=== PATIENT | male | born 1995 | race Caucasian/White ===

== ENCOUNTER 2017-09-07 19:09 | Emergency (ER) | payer MEDICAID ==
[2017-09-07 19:19] VITALS: BP 140/78
--- NOTE | 2017-09-07 19:30 | EDPHY ---
HPI/HX/ROS/PE/MDM Narrative: CHIEF COMPLAINT: Drainage from right toe wound HISTORY OF PRESENT ILLNESS: The patient is a 22 y/o male complaining of drainage from his right great toe paronychia site. On Sunday, 2 days ago, he had the sides of an ingrown toenail removed at [facility]. Today he noticed drainage and erythema of the resection site and was advised to present to the emergency department. The redness around the wound has not increased, but he has had more throbbing pain. Denies fever or red streaking. Was not started on antibiotics post nail removal. No chills, chest pain, shortness of breath, palpitations, vomiting, diarrhea, urinary complaints, headache, lightheadedness. REVIEW OF SYSTEMS: Aside from elements discussed in the HPI, a comprehensive 10-point review of systems was reviewed and is negative. PAST MEDICAL HISTORY: Migraines SOCIAL HISTORY: Student at , lives in [place], [facility] VITAL SIGNS: Reviewed by me GENERAL: Well-developed, well-nourished, resting comfortably in no respiratory distress. HEENT: Benign. RIGHT GREAT TOE: Erythema at tip of toe, erythema over proximal phalanx extending to MTP, medial side of nail is macerated with small amount of drainage. Range of motion is normal throughout. SKIN: Warm and dry, no rash. PSYCHIATRIC: Normal mentation, no agitation. Portions of this note were transcribed by a veterinary medical officer. I personally performed a history, physical exam, medical decision making, and confirmed accuracy of information the transcribed note. ED Course: The patient is a 22 y/o male complaining of drainage from his right great toe wound s/p toe nail removal. On exam there is erythema over proximal phalanx radiating to the MTP and erythema at the tip of the toe. The medial side is macerated with drainage. Reassessed patient, I have prescribed him Keflex for paronychia with infection. His first dose of Keflex will be given in the emergency department. I have also advised him to soak and re-bandage the wound 2-3 times a day. Return precautions provided; patient is comfortable with this plan. MDM: Differential diagnosis considered included but not limited to abscess, cellulitis, local infection, local irritation, lymphangitic spread. - Data Points Medications Given: Discontinued Medications Cephalexin (Keflex 500 Mg Prepack#4) 1 btl TAKEHOME EDNOW ONE PRN Reason: Protocol Stop: 09/07/17 19:44 Last Admin: 09/07/17 19:57 Dose: 1 btl Cephalexin HCl (Keflex) 500 mg PO EDNOW ONE PRN Reason: Protocol Stop: 09/07/17 19:50 Last Admin: 09/07/17 19:58 Dose: 500 mg Hydrogen Peroxide (Hydrogen Peroxide) 1 selma TP EDNOW ONE Stop: 09/07/17 19:50 Last Admin: 09/07/17 19:57 Dose: 1 selma General Time Seen by Provider: 09/07/17 19:26 Initial Vital Signs: Initial Vital Signs Temperature (C) 36.7 C 09/07/17 19:16 Heart Rate 90 09/07/17 19:16 Respiratory Rate 16 09/07/17 19:16 Blood Pressure 140/78 H 09/07/17 19:16 O2 Sat (%) 99 09/07/17 19:16 O2 Delivery Mode Room Air Allergies/Adverse Reactions: Penicillins Allergy (Verified 08/22/14 09:47) Home Medications: Medication Instructions Recorded Cephalexin [Keflex (*)] 500 mg PO QID 7 Days cap 09/07/17 Verapamil 09/07/17 Departure - Departure Disposition: Home, Routine, Self-Care Clinical Impression: Paronychia of great toe of right foot Cellulitis Qualifiers: Site of cellulitis: extremity Site of cellulitis of extremity: toe Laterality: right Qualified Code(s): L03.031 - Cellulitis of right toe Condition: Good Instructions: Cephalexin (By mouth), Wound Infection (ED), Paronychia (ED), Cellulitis (ED), Ingrown Nail (ED), Acute Wounds (ED) Additional Instructions: Take Keflex as prescribed. Take the bandage off and soak the toe 2-[address] an antibiotic ointment on the toe and bandage the toe after soaking it. Monitor the redness and ensure that it is decreasing. Follow up with your primary care physician in the next week. Return to the Emergency Department for fever, redness, red streak, discharge from wound, increasing pain or other worsening of condition. Referrals: Wilfrido Bowles MD [Primary Care Provider] - As per Instructions Prescriptions: Cephalexin [Keflex (*)] 500 mg PO QID 7 Days cap Report Scribed for: Yvonne Isaacs Report Scribed by: Kelsy Muhammad Date of Report: 09/07/17 Time of Report: 19:29
[2017-09-07] MEDS ORDERED: CEPHALEXIN 500MG PREPACK#4 BTL TAKEHOME ONE (19:43)
[2017-09-07] MEDS ORDERED: HYDROGEN PEROXIDE 236 ML BOTTLE TP ONE (19:44)
[2017-09-07] MEDS ORDERED: CEPHALEXIN 500 MG CAP PO ONE (19:49)
[2017-09-07] MEDS ORDERED: HYDROGEN PEROXIDE 473 ML BOTTLE TP ONE (19:49)
== END 2017-09-07 20:03 | disposition home or self-care (01) ==
DX: L03.031 Cellulitis of right toe (principal)